=== PATIENT | female | born 1940 | race African-American/Black ===

== ENCOUNTER 2016-12-14 18:19 | Emergency (ER) | payer OTHER, MEDICARE ==
[2016-12-14 18:32] VITALS: BP 166/74
[2016-12-14] MEDS ORDERED: HYDROCODONE/ACETAMINOPHEN 5-325 MG 6 TAB/DSPK PO PRN (18:50)
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
== END 2016-12-14 19:06 | disposition home or self-care (01) ==
LOC: ER 18:19
DX: S16.1XXA Strain of muscle, fascia and tendon at neck level, initial encounter (principal); M54.9 Dorsalgia, unspecified; M54.5 Low back pain; M25.569 Pain in unspecified knee; V89.2XXA Person injured in unspecified motor-vehicle accident, traffic, initial encounter
CPT/HCPCS: 99283

== ENCOUNTER 2018-04-20 01:54 | Emergency (ER) | payer MEDICARE, OTHER ==
[2018-04-20] MEDS ORDERED: ADENOSINE INJ/PF 6 MG/2 ML SDV IV ONE (02:25)
[2018-04-20] MEDS ORDERED: NORMAL SALINE 500 ML IV ONE (02:25)
--- NOTE | 2018-04-20 02:35 | ER Document Report ---
ED General - General Chief Complaint: Arrhythmia Stated Complaint: INCREASED HEART RATE Time Seen by Provider: 04/20/18 02:12 Notes: Patient is a 77-year-old female who presents with complaint of rapid heartbeat. She states she woke up with her heart beating fast. She denies any chest pain. No shortness of breath. She has no other symptoms whatsoever. She had a similar episode in 2011 and had SVT which was converted with adenosine. She has not had any other issues since then. She denies recent fevers or infections. She has no other complaints at this time. TRAVEL OUTSIDE OF THE [place] IN LAST 30 DAYS: No - Related Data Allergies/Adverse Reactions: No Known Allergies Allergy (Unverified 12/14/16 18:28) Past Medical History - Social History Smoking Status: Never Smoker Frequency of alcohol use: None Drug Abuse: None Family History: Reviewed & Not Pertinent Patient has suicidal ideation: No Patient has homicidal ideation: No - Past Medical History Cardiac Medical History: Reports: Hx Hypertension Endocrine Medical History: Reports: Hx Diabetes Mellitus Type 2 Renal/ Medical History: Denies: Hx Peritoneal Dialysis Review of Systems - Review of Systems Notes: My Normal Review Basic REVIEW OF SYSTEMS: CONSTITUTIONAL : Denies fever, chills, or sweats. Denies recent illness. EENT: Denies eye, ear, throat, or mouth pain or symptoms. Denies nasal or sinus congestion. CARDIOVASCULAR: Denies chest pain. Rapid heartbeat. RESPIRATORY: Denies cough, cold, or chest congestion. Denies shortness of breath, difficulty breathing, or wheezing. GASTROINTESTINAL: Denies abdominal pain. Denies nausea, vomiting, or diarrhea. GENITOURINARY: Denies difficulty urinating, painful urination, burning, frequency, or blood in urine. MUSCULOSKELETAL: Denies neck or back pain or joint pain or swelling. SKIN: Denies rash or skin lesions. NEUROLOGICAL: Denies altered mental status or loss of consciousness. Denies headache. Denies weakness or paralysis or loss of use of either side. Denies problems with gait or speech. Denies sensory or motor loss. ALL OTHER SYSTEMS REVIEWED AND NEGATIVE. Physical Exam - Vital signs Vitals: Temp Resp BP Pulse Ox 97.7 F 20 156/111 H 100 04/20/18 02:04 04/20/18 02:04 04/20/18 02:04 04/20/18 02:04 - Notes Notes: General Appearance: Well nourished, alert, cooperative, no acute distress, no obvious discomfort. Well-appearing. Vitals: reviewed, See vital signs table. Head: no swelling or tenderness to the head Eyes: PERRL, EOMI, Conjuctiva clear Mouth: No decreasd moisture Neck: Supple, no neck tenderness, No thyromegaly Lungs: No wheezing, No rales, No rhonci, No accessory muscle use, good air exchange bilaterally. Heart: Tachycardic rate, Regular rythm, No murmur, no rub Abdomen: Normal BS, soft, No rigidity, No abdominal tenderness, No guarding, no rebound, no abdominal masses, no organomegaly Extremities: strength 5/5 in all extremities, good pulses in all extremities, no swelling or tenderness in the extremities, no edema. Skin: warm, dry, appropriate color, no rash Neuro: speech clear, oriented x 3, normal affect, responds appropriately to questions. Course - Re-evaluation Re-evalutation: 04/20/18 02:48 Patient presents with what appears to be SVT. We did do 3 attempts of vagal maneuvers. These were unsuccessful. We therefore gave her 1 dose of 6 mg of adenosine. She immediately converted with adenosine. She is now in sinus rhythm without any ischemic changes on EKG. I am awaiting her laboratory evaluation to come back. 04/20/18 06:31 Patient is up to evaluation is unremarkable. She looks very well. She is completely asymptomatic except for having palpitations when she arrived. Currently she has no symptoms as her SVT is gone. She said SVT once before. Her EKG showed a narrow complex tachyarrhythmia. I do not suspect V. tach being that it was narrow complex. I feel she is safe to be discharged home. I strongly encourage her to follow-up closely with her technician test systems I referred her to. I encouraged her return to ER if she has recurrence of her symptoms, any chest pain, difficulty breathing, or she feels unwell. Patient agrees with plan will be discharged home. Dictation of this chart was performed using voice recognition software; therefore, there may be some unintended grammatical errors. - Vital Signs Vital signs: Temp Pulse Resp BP Pulse Ox 97.6 F 15 163/69 H 96 04/20/18 05:43 04/20/18 05:43 04/20/18 05:43 04/20/18 05:43 - Laboratory Result Diagrams: 04/20/18 02:54 04/20/18 02:54 Laboratory results interpreted by me: 04/20/18 04/20/18 02:54 02:54 MCH 26.3 L Chloride 110 H Est GFR (Non-Af Amer) 58 L Glucose 160 H - EKG Interpretation by Me Additional EKG results interpreted by me: 04/20/18 05:32 EKG #1 is reviewed and interpreted by me. EKG shows SVT with a rate of [address] segment changes except for very mild ST segment depression which I suspect is rate related. No ST segment elevation. QRS duration and QT intervals are within normal range. EKG #2 is reviewed and interpreted by me. EKG shows sinus rhythm with rate of [address] segment elevation or depression. No ischemic T wave inversions. Portable, QRS duration, QTc intervals are within normal range. 04/20/18 05:35 Discharge - Discharge Clinical Impression: SVT (supraventricular tachycardia) Condition: Good Disposition: HOME, SELF-CARE Additional Instructions: Today you had a heart arrythmia called SVT. Please follow up closely with Dr. Dash, technician test systems, for reevaluation and to discuss whether changes in medications or other treatments may help prevent another episode of SVT. Please return to the ER immediately if you develop chest pain, difficulty breathing, recurrent fast heart beat, or if you feel unwell. Referrals: SALVADOR BIALEY MD [Primary Care Provider] - Follow up as needed STEPH DASH MD [ACTIVE STAFF] - Follow up in 3-5 days
[2018-04-20 03:04] LABS: ABSOLUTE EOSINOPHILS # (AUTO) 0.1 10^3/uL (0.0-0.6); ABSOLUTE LYMPHOCYTES (AUTO) 1.2 10^3/uL (0.5-4.7); ABSOLUTE MONOCYTES (AUTO) 0.3 10^3/uL (0.1-1.4); BASOPHILS % (AUTO) 0.8 % (0-2); EOSINOPHILS % (AUTO) 1.4 % (0-6); HEMATOCRIT 37.9 % (36.0-47.0); HEMOGLOBIN 12.2 g/dL (12.0-15.5); LYMPHOCYTES % (AUTO) 25.4 % (13-45); MEAN CORPUSCULAR HEMOGLOBIN 26.3 pg (27.0-33.4); MEAN CORPUSCULAR HGB CONC 32.1 g/dL (32.0-36.0); MEAN CORPUSCULAR VOLUME 82 fl (80-97); MONOCYTES % (AUTO) 7.4 % (3-13); PLATELET COUNT 165 10^3/uL (150-450); RED BLOOD COUNT 4.61 10^6/uL (3.72-5.28); RED CELL DISTRIBUTION WIDTH 13.9 % (11.5-14.0); TOTAL CELLS COUNTED % (AUTO) 100 %; WHITE BLOOD COUNT 4.6 10^3/uL (4.0-10.5)
[2018-04-20 03:37] LABS: ALANINE AMINOTRANSFERASE 16 U/L (9-52); ALBUMIN 3.7 g/dL (3.5-5.0); ALKALINE PHOSPHATASE 90 U/L (38-126); ANION GAP 5 (5-19); ASPARTATE AMINO TRANSFERASE 28 U/L (14-36); BILIRUBIN,DIRECT 0.4 mg/dL (0.0-0.4); BILIRUBIN,TOTAL 0.4 mg/dL (0.2-1.3); BLOOD UREA NITROGEN 18 mg/dL (7-20); CALCIUM 10.2 mg/dL (8.4-10.2); CARBON DIOXIDE 27 mmol/L (22-30); CHLORIDE 110 mmol/L (98-107); GLUCOSE 160 mg/dL (75-110); SODIUM 142.4 mmol/L (137-145); TOTAL PROTEIN 6.8 g/dL (6.3-8.2)
[2018-04-20 05:55] VITALS: BP 163/69
--- NOTE | 2018-04-20 16:54 | EKG REPORT ---
SEVERITY:- ABNORMAL ECG - SUPRAVENTRICULAR TACHYCARDIA REPOLARIZATION ABNORMALITY, PROB RATE RELATED : Confirmed by: Nargis Dash MD 20-Apr-2018 16:54:07
--- NOTE | 2018-04-20 16:54 | EKG REPORT ---
SEVERITY:- ABNORMAL ECG - SINUS TACHYCARDIA LEFT ATRIAL ABNORMALITY NONSPECIFIC T ABNORMALITIES, INFERIOR LEADS : Confirmed by: Nargis Dash MD 20-Apr-2018 16:53:54
== END 2018-04-20 05:54 | disposition home or self-care (01) ==
LOC: ER 01:54
DX: I47.1 Supraventricular tachycardia (principal); I10 Essential (primary) hypertension; E10.9 Type 1 diabetes mellitus without complications
CPT/HCPCS: 93005; 99285; 96361; 96374; 36415; 83735; 84443; 85025; 80053; 84484; 93010; J0153

== ENCOUNTER 2018-05-21 03:01 | Emergency (ER) | payer MEDICARE ==
--- NOTE | 2018-05-21 03:13 | ER Document Report ---
ED Cardiac - General Mode of Arrival: Medic Information source: Patient, Emergency Med Personnel, [facility] Records TRAVEL OUTSIDE OF THE [place] IN LAST 30 DAYS: No <RENNY BRADFORD - Last Filed: 05/21/18 03:15> - General Mode of Arrival: Medic Information source: Patient, Emergency Med Personnel, [facility] Records <JOSE DUNNE - Last Filed: 05/21/18 04:52> - General Stated Complaint: POSSIBLE FAST HEART RATE Time Seen by Provider: 05/21/18 03:04 Notes: 77-year-old female who presents to the emergency department today with complaints of a heart racing sensation that occurred prior to arrival today. Patient states she woke up from sleeping around 0230 to go to the restroom, on her way back she noted that her heart was racing. Patient was given 6 mg of Adenocard by EMS. Review of the EMS run strips show a heart rate of around 160- 165, after the Adenocard was administered there was characteristic pause then normal heart rate and rhythm followed. Patient was in SVT around 1 month ago as well. Patient denies any chest pain or shortness of breath. (RENNY BRADFORD) - Related Data Allergies/Adverse Reactions: No Known Allergies Allergy (Unverified 12/14/16 18:28) Past Medical History - General Information source: Patient, [facility] Records - Social History Smoking Status: Never Smoker Cigarette use (# per day): No Frequency of alcohol use: None Drug Abuse: None Lives with: Alone Family History: Reviewed & Not Pertinent - Past Medical History Cardiac Medical History: Reports: Hx Hypertension Endocrine Medical History: Reports: Hx Diabetes Mellitus Type 2 <RENNY BRADFORD - Last Filed: 05/21/18 03:15> Endocrine Medical History: Reports: Other - Hypercalcemia <JOSE DUNNE - Last Filed: 05/21/18 04:52> Review of Systems - Review of Systems Constitutional: No symptoms reported EENT: No symptoms reported Cardiovascular: See HPI, Heart racing. denies: Chest pain Respiratory: No symptoms reported Gastrointestinal: No symptoms reported Genitourinary: No symptoms reported Female Genitourinary: No symptoms reported Musculoskeletal: No symptoms reported Skin: No symptoms reported Hematologic/Lymphatic: No symptoms reported Neurological/Psychological: No symptoms reported -: Yes All other systems reviewed and negative <RENNY BRADFORD - Last Filed: 05/21/18 03:15> Physical Exam <RENNY BRADFORD - Last Filed: 05/21/18 03:15> <JOSE DUNNE - Last Filed: 05/21/18 04:52> - Vital signs Vitals: Resp 14 05/21/18 03:09 - Notes Notes: Physical Exam: General: Alert, appears well. Wearing Z10XT heart monitor. HEENT: Normocephalic. Atraumatic. PERRL. Extraocular movements intact. Oropharynx clear. Neck: Supple. Non-tender. Respiratory: No respiratory distress. Clear and equal breath sounds bilaterally. Cardiovascular: Regular rate and rhythm. Abdominal: Normal Inspection. Non-tender. No distension. Normal Bowel Sounds. Back: Non-tender. No deformity or step off. Extremities: Moves all four extremities. Upper extremities: Normal inspection. Normal ROM. Lower extremities: Normal inspection. No edema. Normal ROM. Neurological: Normal cognition. AAOx4. Normal speech. Psychological: Normal affect. Normal Mood. Skin: Warm. Dry. Normal color. (RENNY BRADFORD) Course - Laboratory Result Diagrams: 05/21/18 03:35 05/21/18 03:35 - EKG Interpretation by [place] EKG shows normal: Sinus rhythm, [place], Intervals, QRS Complexes, ST-T Waves - Nonspecific anterior lateral T abnormalities Rate: Normal - 82 Rhythm: NSR <VIBHA,JOSE - Last Filed: 05/21/18 04:52> - Vital Signs Vital signs: Temp Pulse Resp BP Pulse Ox 98 F 88 20 168/95 H 96 05/21/18 03:57 05/21/18 03:57 05/21/18 03:57 05/21/18 03:57 05/21/18 03:57 - Laboratory Laboratory results interpreted by mi: 05/21/18 05/21/18 03:35 03:35 MCH 26.2 L Sodium 148.0 H Chloride 108 H Glucose 115 H Calcium 11.1 H Discharge <RENNY BRDAFORD - Last Filed: 05/21/18 03:15> <JOSE DUNNE - Last Filed: 05/21/18 04:52> - Discharge Clinical Impression: Paroxysmal SVT (supraventricular tachycardia), Hypercalcemia High blood pressure Qualifiers: Hypertension type: essential hypertension Qualified Code(s): I10 - Essential ( primary) hypertension Condition: Stable Disposition: HOME, SELF-CARE Additional Instructions: Be sure to take your regular blood pressure medications when you get home. Follow-up with Dr. Felix for recheck. Take all of the medications and medication bottles you have with you to the office so he can help you discard the medicines and bottles that you should not have any longer. RETURN TO THE EMERGENCY ROOM IF ANY NEW OR WORSENING SYMPTOMS. Forms: Treatment of Relative/Child Referrals: SALVADOR FELIX MD [Primary Care Provider] - Follow up as needed Scribe Attestation: 05/21/18 03:19 I personally performed the services described in the documentation, reviewed and edited the documentation which was dictated to the scribe in my presence, and it accurately records my words and actions. (JOSE DUNNE) Scribe Documentation - Scribe Written by Scribe:: Kumar Cortez, 05/21/2018 0318 acting as scribe for :: Vibha <RENNY BRADFORD - Last Filed: 05/21/18 03:15>
[2018-05-21 03:48] LABS: ABSOLUTE EOSINOPHILS # (AUTO) 0.1 10^3/uL (0.0-0.6); ABSOLUTE LYMPHOCYTES (AUTO) 1.4 10^3/uL (0.5-4.7); ABSOLUTE MONOCYTES (AUTO) 0.3 10^3/uL (0.1-1.4); ABSOLUTE NEUT (AUTO) 2.9 10^3/uL (1.7-8.2); BASOPHILS % (AUTO) 0.8 % (0-2); EOSINOPHILS % (AUTO) 2.4 % (0-6); HEMATOCRIT 39.6 % (36.0-47.0); HEMOGLOBIN 12.7 g/dL (12.0-15.5); LYMPHOCYTES % (AUTO) 29.3 % (13-45); MEAN CORPUSCULAR HEMOGLOBIN 26.2 pg (27.0-33.4); MEAN CORPUSCULAR VOLUME 82 fl (80-97); MONOCYTES % (AUTO) 6.1 % (3-13); PLATELET COUNT 177 10^3/uL (150-450); RED BLOOD COUNT 4.84 10^6/uL (3.72-5.28); RED CELL DISTRIBUTION WIDTH 13.8 % (11.5-14.0); SEGMENTED NEUTROPHILS % (AUTO) 61.4 % (42-78); TOTAL CELLS COUNTED % (AUTO) 100 %; WHITE BLOOD COUNT 4.7 10^3/uL (4.0-10.5)
[2018-05-21 04:04] LABS: ALANINE AMINOTRANSFERASE 18 U/L (9-52); ALBUMIN 4.2 g/dL (3.5-5.0); ALKALINE PHOSPHATASE 108 U/L (38-126); ANION GAP 14 (5-19); ASPARTATE AMINO TRANSFERASE 23 U/L (14-36); BILIRUBIN,DIRECT 0.1 mg/dL (0.0-0.4); BILIRUBIN,TOTAL 0.3 mg/dL (0.2-1.3); BLOOD UREA NITROGEN 14 mg/dL (7-20); CALCIUM 11.1 mg/dL (8.4-10.2); CARBON DIOXIDE 26 mmol/L (22-30); CHLORIDE 108 mmol/L (98-107); CREATINE KINASE 79 U/L (30-135); GLUCOSE 115 mg/dL (75-110); TOTAL PROTEIN 7.4 g/dL (6.3-8.2)
[2018-05-21 04:17] LABS: CREATINE KINASE MB 0.51 ng/mL (<4.55)
[2018-05-21 04:21] LABS: TROPONIN I < 0.012 ng/mL
[2018-05-21 05:04] VITALS: BP 151/83
--- NOTE | 2018-05-21 08:22 | EKG REPORT ---
SEVERITY:- ABNORMAL ECG - SINUS RHYTHM NONSPECIFIC T ABNORMALITIES, ANT-LAT LEADS : Confirmed by: Nargis Dash MD 21-May-2018 08:22:21
== END 2018-05-21 05:09 | disposition home or self-care (01) ==
LOC: ER 03:01
DX: I47.1 Supraventricular tachycardia (principal); E83.52 Hypercalcemia; I10 Essential (primary) hypertension; E11.9 Type 2 diabetes mellitus without complications
CPT/HCPCS: 36415; 80053; 82550; 82553; 83735; 84484; 85025; 93005; 93010; 99285

== ENCOUNTER 2018-06-25 00:06 | Emergency (ER) | payer MEDICARE ==
[2018-06-25] MEDS ORDERED: ACETAMINOPHEN 325 MG TABLET PO ONE (01:03)
[2018-06-25] MEDS ORDERED: HYDROCHLOROTHIAZIDE 12.5 MG TABLET PO ONE (01:04)
--- NOTE | 2018-06-25 02:30 | ER Document Report ---
ED General - General Chief Complaint: High Blood Pressure Stated Complaint: BLOOD PRESSURE CONCERNS Time Seen by Provider: 06/25/18 00:45 Notes: Patient is a pleasant 77-year-old female presents with complaint of high blood pressure. She says she has been under a lot of stress recently and she thinks this made her blood pressure go up. She notes her blood pressure is up because she felt the fuzziness in her head and slight pain in her head. She says she gets this whenever her blood pressure gets high. No fevers. No vomiting. No chest pain. No shortness of breath. No abdominal pain. No other complaints at this time. She did take her amlodipine at home around 7 PM. She says that she also takes losartan in the morning. No recent changes in her blood pressure medications. Last change in her blood pressure medications was around 3 months ago. She is followed by Dr. Bailey. TRAVEL OUTSIDE OF THE [place] IN LAST 30 DAYS: No - Related Data Allergies/Adverse Reactions: No Known Allergies Allergy (Unverified 12/14/16 18:28) Past Medical History - Social History Smoking Status: Never Smoker Frequency of alcohol use: None Drug Abuse: None Family History: Reviewed & Not Pertinent - Past Medical History Cardiac Medical History: Reports: Hx Hypertension Endocrine Medical History: Reports: Hx Diabetes Mellitus Type 2 Renal/ Medical History: Denies: Hx Peritoneal Dialysis Review of Systems - Review of Systems Notes: My Normal Review Basic REVIEW OF SYSTEMS: CONSTITUTIONAL : Denies fever, chills, or sweats. Denies recent illness. EENT: Denies eye, ear, throat, or mouth pain or symptoms. Denies nasal or sinus congestion. CARDIOVASCULAR: Denies chest pain. RESPIRATORY: Denies cough, cold, or chest congestion. Denies shortness of breath, difficulty breathing, or wheezing. GASTROINTESTINAL: Denies abdominal pain. Denies nausea, vomiting, or diarrhea. MUSCULOSKELETAL: Denies neck or back pain or joint pain or swelling. SKIN: Denies rash or skin lesions. NEUROLOGICAL: Denies altered mental status or loss of consciousness. Has a headache. Denies weakness or paralysis or loss of use of either side. Denies problems with gait or speech. Denies sensory or motor loss. ALL OTHER SYSTEMS REVIEWED AND NEGATIVE. Physical Exam - Vital signs Vitals: Temp Pulse Resp BP Pulse Ox 98.2 F 62 14 182/75 H 98 06/25/18 00:24 06/25/18 00:24 06/25/18 00:24 06/25/18 00:24 06/25/18 00:24 - Notes Notes: General Appearance: Well nourished, alert, cooperative, no acute distress, no obvious discomfort. Vitals: reviewed, See vital signs table. Head: no swelling or tenderness to the head Eyes: PERRL, EOMI, Conjuctiva clear Mouth: No decreasd moisture Lungs: No wheezing, No rales, No rhonci, No accessory muscle use, good air exchange bilaterally. Heart: Normal rate, Regular rythm, No murmur, no rub Abdomen: Normal BS, soft, No rigidity, No abdominal tenderness, No guarding, no rebound, no abdominal masses, no organomegaly Extremities: good pulses in all extremities, no swelling or tenderness in the extremities, no edema. Skin: warm, dry, appropriate color, no rash Neuro: speech clear, oriented x 3, normal affect, responds appropriately to questions. Cranial nerves II through XII are intact. Distal sensation intact. Patient moves all extremities without difficulty. Course - Re-evaluation Re-evalutation: 06/25/18 03:42 Patient's headache is gone. She looks and feels well. Blood pressure started to trend downwards. CT scan is normal. She has no focal neurologic deficits on exam. She is currently asymptomatic and I feel she safe to be discharged home. Her to call her primary care doctor, Dr. Bailey, this morning to make close follow-up appointment. I informed her to return to ER medially if she has recurrence of her high blood pressure, headache, chest pain, difficulty breathing, or if she feels unwell. Patient agrees with plan and will be discharged home. Dictation of this chart was performed using voice recognition software; therefore, there may be some unintended grammatical errors. - Vital Signs Vital signs: Temp Pulse Resp BP Pulse Ox 98.2 F 62 14 173/79 H 98 06/25/18 00:24 06/25/18 00:24 06/25/18 00:24 06/25/18 03:32 06/25/18 00:24 Discharge - Discharge Clinical Impression: Hypertension Qualifiers: Hypertension type: unspecified Qualified Code(s): I10 - Essential (primary) hypertension Headache Qualifiers: Headache type: unspecified Headache chronicity pattern: episodic headache Intractability: not intractable Qualified Code(s): R51 - Headache Condition: Good Disposition: HOME, SELF-CARE Additional Instructions: Please take your blood pressure medications as prescribed by Dr. Bailey. please call Dr. Bailey's office this morning for a close follow up visit later today. please return to the ER immediately if you develop recurrent headaches, vomiting , chest pain, difficulty breathing, or feel unwell. Referrals: SALVADOR BAILEY MD [Primary Care Provider] - 06/25/18
--- NOTE | 2018-06-25 03:36 | RADIOLOGY REPORT (SQ) ---
EXAM DESCRIPTION: CT HEAD WITHOUT IV CONTRAST COMPLETED DATE/TME: 06/25/2018 01:04 CLINICAL HISTORY: 77 years Female, headache, HTN COMPARISON: None. TECHNIQUE: No contrast. Coronal and sagittal reformat. This exam was performed according to our departmental dose-optimization program, which includes automated exposure control, adjustment of the mA and/or kV according to patient size and/or use of iterative reconstruction technique. FINDINGS: No hemorrhage or infarct. No mass, mass effect, or midline shift. White matter microangiopathy, parenchymal volume loss, and atherosclerosis. Brain and extra-axial structures appear otherwise intact. IMPRESSION: No acute findings.
[2018-06-25 06:49] VITALS: BP 188/74
== END 2018-06-25 04:05 | disposition home or self-care (01) ==
LOC: ER 00:06
DX: I10 Essential (primary) hypertension (principal); Z79.899 Other long term (current) drug therapy; R51 Headache; E11.9 Type 2 diabetes mellitus without complications
CPT/HCPCS: 99284; 70450; A9270 ×2